=== PATIENT | female | born 1960 | race Caucasian/White ===

== ENCOUNTER 2019-07-30 11:04 | Emergency (ER) | payer MEDICARE ==
[~2019-07-30] VITALS: Ht 162.6 cm; Wt 123.8 kg
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
--- NOTE | 2019-07-30 11:22 | NUR ---
DR LEONARDO AT BEDSIDE
--- NOTE | 2019-07-30 11:29 | NUR ---
PATIENT ATTEMPTING TO LEAVE FACILITY. SITTER AT BEDSIDE. MADE AWARE
--- NOTE | 2019-07-30 11:36 | NUR ---
PATIENT MEDICALLY CLEAR TO GO PER MD.
--- NOTE | 2019-07-30 11:37 | NUR ---
OFFERED CASE MANAGEMENT AND /OR SHOE REPAIRER HELPER, PATIENT REFUSED.
--- NOTE | 2019-07-30 11:39 | NUR ---
Patient discharged to home in stable condition. Written and verbal after care instructions given. Patient verbalizes understanding of instruction. Pt ambulatory with a steady gait
[2019-07-30 11:42] VITALS: BP 155/89
== END 2019-07-30 11:43 | disposition home or self-care (01) ==
LOC: ER 11:09
DX: F39 Unspecified mood [affective] disorder (principal); M25.512 Pain in left shoulder; I10 Essential (primary) hypertension; E03.9 Hypothyroidism, unspecified; Z59.0 Homelessness; Y08.89XA Assault by other specified means, initial encounter; Y93.89 Activity, other specified; Y92.89 Other specified places as the place of occurrence of the external cause; Y99.8 Other external cause status